=== PATIENT | female | born 1990 | race Caucasian/White ===

== ENCOUNTER 2016-08-19 22:12 | Inpatient (IN) | payer OTHER ==
--- NOTE | 2016-08-19 23:28 | HP ---
COWS - Scale Resting Pulse: 1= [place] 81-100 Sweatin= Chills/Flushing Restless Observation: 5= Unable to Sit Still Pupil Size: 1= Pupils >than Normal Bone or Joint Aches: 4=Acute Joint/Muscle Pain Runny Nose/ Eye Tearin= Nasal Congestion GI Upset > 30mins: 1= Stomach Cramp Tremor Observation: 1= Tremor [place], Not Seen Yawning Observation: 1= 1-2x During Session Anxiety or Irritability: 2=Irritable/Anxious Goose Flesh Skin: 0=Smooth Skin COWS Score: 18 CIWA Score - CIWA Score Nausea/Vomitin-Mild Nausea/No Vomiting Muscle Tremors: 3 Anxiety: 4-Mod. Anxious/Guarded Agitation: 4-Moderately Restless Paroxysmal Sweats: 3 Orientation: 0-Oriented Tacttile Disturbances: 0-None Auditory Disturbances: 0-None Visual Disturbances: 0-None Headache: 1-Very Mild CIWA-Ar Total Score: 16 Admission ROS BHS - HPI Chief Complaint: C/O HEROIN AND XANAX DEPENDENCE. SEEKING DETOX TXMENT Allergies/Adverse Reactions: Allergies Allergy/AdvReac Type Severity Reaction Status Date / Time No Known Allergies Allergy Verified 08/19/16 23:21 History of Present Illness: 26 Y.O. FEMALE WITH OPIOID DEPENDENCE AND BENZO DEPENDENCE ADMITTED FOR DETOX TXMENT. THIS IS CLIENT FIRST TIME IN [facility]. DENIES ANY SIGNIFICANT PERIOD OF CLEAN TIME Exam Limitations: No Limitations - Ebola screening Have you traveled outside of the country in the last 21 days: No (N) Have you had contact with anyone from an Ebola affected area: No Do you have a fever: No - Review of Systems Constitutional: Chills, Loss of Appetite, Malaise, Night Sweats, Changes in sleep EENT: reports: No Symptoms Reported Respiratory: reports: No Symptoms reported Cardiac: reports: No Symptoms Reported GI: reports: Poor Appetite, Abdominal cramping : reports: No Symptoms Reported Musculoskeletal: reports: Joint Pain Integumentary: reports: No Symptoms Reported Neuro: reports: No Symptoms reported Endocrine: reports: No Symptoms Reported Hematology: reports: No Symptoms Reported Psychiatric: reports: Anxious Other Systems: Reviewed and Negative Patient History - Patient Medical History Hx Anemia: No Hx Asthma: No Hx Chronic Obstructive Pulmonary Disease (COPD): No Hx Cancer: No Hx Cardiac Disorders: No Hx Congestive Heart Failure: No Hx Hypertension: No Hx Hypercholesterolemia: No Hx Pacemaker: No HX Cerebrovascular Accident: No Hx Seizures: No Hx Dementia: No Hx Diabetes: No Hx Gastrointestinal Disorders: No Hx Liver Disease: No Hx Genitourinary Disorders: No Hx Sexually Transmitted Disorders: No Hx Renal Disease (ESRD): No Hx Thyroid Disease: No Hx Human Immunodeficiency Virus (HIV): No Hx Hepatitis C: No Hx Depression: No Hx Suicide Attempt: No Hx Bipolar Disorder: No Hx Schizophrenia: No Other Medical History: DENIES - Patient Surgical History Past Surgical History: No - PPD History Previous Implant?: No Implanted On Prior [facility] Admission?: No PPD to be Administered?: Yes - Reproductive History Patient is a Female of Child Bearing Age (11 -55 yrs old): Yes Last Menstrual Period: 07/28/16 (IRREG) Patient : No - Smoking Cessation Smoking history: Current every day smoker Have you smoked in the past 12 months: Yes Aproximately how many cigarettes per day: 5 Cigars Per Day: 0 Hx Chewing Tobacco Use: No Initiated information on smoking cessation: Yes 'Breaking Loose' booklet given: 08/19/16 - Substance & Tx. History Hx Alcohol Use: No Hx Substance Use: Yes Substance Use Type: Heroin, Tranquilizers (XANAX) Hx Substance Use Treatment: No - Substances Abused HEROIN Route: Inhalation Frequency: Daily Amount used: 6 BAGS Age of first use: 24 Date of Last Use: 08/19/16 (2 BAGS) XANAX Route: Oral Frequency: 1-2 times per week Amount used: 4 MG Age of first use: 24 Date of Last Use: 08/18/16 Family Disease History - Family Disease History Family History: Denies Admission Physical Exam [facility] - Physical General Appearance: Yes: Appropriately Dressed, Mild Distress, Tremorous, Anxious HEENTM: Yes: EOMI, Normocephalic, Normal Voice, ELA, Pharynx Normal, Nasal Congestion Respiratory: Yes: Chest Non-Tender, Lungs Clear, Normal Breath Sounds, No Respiratory Distress, No Accessory Muscle Use Neck: Yes: No masses,lesions,Nodules, Supple, Trachea in good position Breast: Yes: Breast Exam Deferred Cardiology: Yes: Regular Rhythm, S1, S2, Tachycardia Abdominal: Yes: Normal Bowel Sounds, Non Tender, Flat, Soft Genitourinary: Yes: Within Normal Limits Back: Yes: Normal Inspection Musculoskeletal: Yes: full range of Motion, Gait Steady Extremities: Yes: Normal Capillary Refill, Normal Range of Motion, Non-Tender, Tremors 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, Fully Oriented, Alert, Motor Strength 5/5 Integumentary: Yes: Normal Color, Dry, Warm Lymphatic: Yes: Within Normal Limits - Diagnostic (1) Opioid dependence with withdrawal Current Visit: Yes Status: Chronic (2) Sedative, hypnotic or anxiolytic dependence with withdrawal, uncomplicated Current Visit: Yes Status: Chronic (3) Nicotine dependence Current Visit: Yes Status: Chronic Qualifiers: Nicotine product type: cigarettes Substance use status: uncomplicated Qualified Code(s): F17.210 - Nicotine dependence, cigarettes, uncomplicated Cleared for Admission S - Detox or Rehab [facility] Level of Care: Medically Managed Detox Regimen/Protocol: Methadone/Valium
[2016-08-19] MEDS ORDERED: P-EPHED 60MG/TRIPROLIDI 2.5MG TABLET PO PRN (23:42)
[2016-08-19] MEDS ORDERED: MENTHOL/PHENOL 1 EACH UD MM PRN (23:42)
[2016-08-19] MEDS ORDERED: ACETAMINOPHEN 325 MG TABLET (FP) PO PRN (23:42)
[2016-08-19] MEDS ORDERED: MAGNESIUM HYDROX 2400MG/30ML ORAL SUSPENSION 30 ML CUP PO PRN (23:42)
[2016-08-19] MEDS ORDERED: MAGNESIUM CITRATE 300 ML BOTTLE PO PRN (23:42)
[2016-08-19] MEDS ORDERED: IBUPROFEN 400 MG TABLET (FP) PO PRN (23:42)
[2016-08-19] MEDS ORDERED: LOPERAMIDE HCL 2 MG CAPSULE PO PRN (23:42)
[2016-08-19] MEDS ORDERED: MAG HYDROX/AL HYDROX/SIMETH 30 ML UNIT-DOSE CUP PO PRN (23:42)
[2016-08-19] MEDS ORDERED: guaiFENesin/D-METHORPHAN HB 10 ML UNIT-DOSE CUPS PO PRN (23:42)
[2016-08-19 23:45] VITALS: BMI 22.3
[2016-08-20] MEDS ORDERED: METHADONE HCL 10 MG TABLET (FOR DETOX USE ONLY) PO ONE ×3 (00:05→23:00)
[2016-08-20] MEDS ORDERED: diazePAM 5 MG TABLET PO PRN (00:05)
[2016-08-20] MEDS ORDERED: diazePAM 5 MG TABLET PO ONE (00:15)
[2016-08-20] MEDS: diphenhydrAMINE HCL 50 MG CAPSULE PO PRN ×2 (02:08→23:59)
[2016-08-20] MEDS: diazePAM 5 MG TABLET PO PRN ×3 (02:08→20:01)
[2016-08-20] MEDS: diazePAM 5 MG TABLET PO SCH ×3 (05:33→22:29)
[2016-08-20 10:32] LABS: MCH 27.5 pg (25.7-33.7); MCHC 33.5 g/dl (32.0-36.0); MEAN PLT VOLUME 8.8 fl (7.5-11.1); PLATELET COUNT 233 K/MM3 (134-434); RDW 13.8 % (11.6-15.6); WHITE BLOOD COUNT 7.8 K/mm3 (4.0-10.0)
[2016-08-20 10:36] LABS: ALBUMIN 3.5 g/dl (3.4-5.0); ANION GAP 9 (8-16); CALCIUM 8.9 mg/dL (8.5-10.1); CO2 30 mmol/L (21-32); GLUCOSE,RANDOM 89 mg/dL (74-106)
[2016-08-20] MEDS: PRENATAL VITAMINS W/ FOLIC ACID TABLET (FP) PO SCH (10:39)
[2016-08-20 10:41] LABS: ALK PHOS 69 U/L (45-117); BILIRUBIN,TOTAL 0.4 mg/dL (0.2-1.0); COCKROFT - GAULT 113.3645; CREATININE 0.7 mg/dL (0.55-1.02); SGOT/AST 15 U/L (15-37); SGPT/ALT 26 U/L (12-78); TOT PROT 6.4 g/dl (6.4-8.2)
[2016-08-20] MEDS: NICOTINE 14 MG/24 HOURS TOPICAL PATCH TD SCH (10:41)
--- NOTE | 2016-08-20 10:57 | CONSULT ---
[facility] Psychiatric Consult - Data Date of interview: 08/20/16 Admission source: [facility] Identifying data: This is 26 years old female with no psychiatric hospitalization history intoxicated with: Opioids, Xanax and Nicotine Substance Abuse History: - Smoking Cessation. Smoking history: Current every day smoker. Have you smoked in the past 12 months: Yes. Aproximately how many cigarettes per day: 5. Cigars Per Day: 0. Hx Chewing Tobacco Use: No. Initiated information on smoking cessation: Yes. 'Breaking Loose' booklet given : 08/19/16. - Substance & Tx. History. Hx Alcohol Use: No. Hx Substance Use: Yes. Substance Use Type: Heroin, Tranquilizers (XANAX). Hx Substance Use Treatment: No. - Substances Abused. HEROIN. Route: Inhalation. Frequency : Daily. Amount used: 6 BAGS. Age of first use: 24. Date of Last Use: (2 BAGS). XANAX. Route: Oral. Frequency: 1-2 times per week. Amount used: 4 MG. Age of first use: 24. Date of Last Use: 08/18/16 Medical History: Denies Psychiatric History: Denies Physical/Sexual Abuse/Trauma History: Denies Additional Comment: Observation. Detox Unit Carte Protocol Mental Status Exam - Mental Status Exam Alert and Oriented to: Person Cognitive Function: Fair Patient Appearance: Unkempt Mood: Sad Affect: Mood Congruent Patient Behavior: Cooperative Speech Pattern: Appropriate Voice Loudness: Normal Thought Process: Goal Oriented Thought Disorder: Being Controlled Hallucinations: Denies Suicidal Ideation: Denies Homicidal Ideation: Denies Insight/Judgement: Fair Sleep: Difficulty falling asleep Appetite: Fair Muscle strength/Tone: Normal Gait/Station: Normal Additional Comments: Observation. Detox Unit Carte Protocol Psychiatric Findings - Problem List ([place] 1, 2,3) (1) Nicotine dependence Current Visit: Yes Status: Chronic Qualifiers: Nicotine product type: cigarettes Substance use status: uncomplicated Qualified Code(s): F17.210 - Nicotine dependence, cigarettes, uncomplicated (2) Opioid dependence with withdrawal Current Visit: Yes Status: Chronic (3) Sedative, hypnotic or anxiolytic dependence with withdrawal, uncomplicated Current Visit: Yes Status: Chronic (4) Drug-induced mood disorder Current Visit: Yes Status: Suspected - Initial Treatment Plan Initial Treatment Plan: Observation. Detox Unit Carte Protocol
--- NOTE | 2016-08-20 11:25 | PN ---
[facility] CIWA - CIWA Score Nausea/Vomitin-No Nausea/No Vomiting Muscle Tremors: 4-Moderate,w/Arms Extend Anxiety: 3 Agitation: 3 Paroxysmal Sweats: 3 Orientation: 0-Oriented Tacttile Disturbances: 0-None Auditory Disturbances: 0-None Visual Disturbances: 0-None Headache: 1-Very Mild CIWA-Ar Total Score: 14 BHS COWS - Scale Resting Pulse: 0= [place] 80 or Below Sweatin=Flushed/Facial Moisture Restless Observation: 1= Difficult to Sit Still Pupil Size: 0= Normal to Room Light Bone or Joint Aches: 2= Severe Diffuse Aches Runny Nose/ Eye Tearin= Nasal Congestion GI Upset > 30mins: 1= Stomach Cramp Tremor Observation of Outstretched Hands: 2= Slight Tremor Visible Yawning Observation: 2= >3x During Session Anxiety or Irritability: 2=Irritable/Anxious Goose Flesh Skin: 0=Smooth Skin COWS Score: 13 S Progress Note (SOAP) Subjective: agitation sweats irritable tired shakes chills Objective: 08/20/16 11:24 Vital Signs Temperature 97.9 F 08/20/16 09:55 Pulse Rate 73 08/20/16 09:55 Respiratory Rate 18 08/20/16 09:55 Blood Pressure 90/60 08/20/16 09:55 O2 Sat by Pulse Oximetry (%) Laboratory Tests 08/20/16 08/20/16 07:00 07:00 WBC 7.8 RBC 4.24 Hgb 11.7 Hct 34.8 MCV 82.0 MCHC 33.5 RDW 13.8 Plt Count 233 MPV 8.8 Sodium 142 Potassium 3.7 Chloride 103 Carbon Dioxide 30 Anion Gap 9 BUN 13 Creatinine 0.7 Creat Clearance w eGFR > 60 Random Glucose 89 Calcium 8.9 Total Bilirubin 0.4 AST 15 ALT 26 Alkaline Phosphatase 69 Total Protein 6.4 Albumin 3.5 labs pending awake/alert ambulating no acute distress Assessment: 08/20/16 11:24 withdrawal sx Plan: continue detox increase fluids labs pending
--- NOTE | 2016-08-20 13:23 | EKG ---
Test Reason : Blood Pressure : / mmHG Vent. Rate : 069 BPM Atrial Rate : 069 BPM P-R Int : 160 ms QRS Dur : 094 ms QT Int : 394 ms P-R-T Axes : 018 075 034 degrees QTc Int : 422 ms NORMAL SINUS RHYTHM T WAVE ABNORMALITY, CONSIDER ANTERIOR ISCHEMIA NO PREVIOUS ECGS AVAILABLE Confirmed by RADHA YUAN, SANDY ([id number]) on 08/20/2016 1:23:44 PM Referred By: Parmjit Blackburn Confirmed By:SANDY GARCIA MD
[2016-08-20] MEDS: THIAMINE HCL 100 MG TABLET (FP) PO SCH (22:28)
[2016-08-20] MEDS: NICOTINE POLACRILEX 2 MG GUM BC PRN (23:25)
[2016-08-21] MEDS: diazePAM 5 MG TABLET PO SCH ×3 (05:34→22:17)
[2016-08-21] MEDS: NICOTINE POLACRILEX 2 MG GUM BC PRN ×2 (09:17→15:31)
[2016-08-21] MEDS: diazePAM 5 MG TABLET PO PRN ×2 (09:24→17:46)
--- NOTE | 2016-08-21 09:37 | PN ---
[facility] CIWA - CIWA Score Nausea/Vomitin-Mild Nausea/No Vomiting Muscle Tremors: 3 Anxiety: 3 Agitation: 2 Paroxysmal Sweats: 3 Orientation: 0-Oriented Tacttile Disturbances: 2-Mild Itch/Numbness/Burn Auditory Disturbances: 0-None Visual Disturbances: 0-None Headache: 0-None Present CIWA-Ar Total Score: 14 BHS COWS - Scale Resting Pulse: 1= [place] 81-100 Sweatin= Chills/Flushing Restless Observation: 1= Difficult to Sit Still Pupil Size: 1= Pupils >than Normal Bone or Joint Aches: 2= Severe Diffuse Aches Runny Nose/ Eye Tearin= Nasal Congestion GI Upset > 30mins: 1= Stomach Cramp Tremor Observation of Outstretched Hands: 1= Tremor [place], Not Seen Yawning Observation: 0= None Anxiety or Irritability: 2=Irritable/Anxious Goose Flesh Skin: 0=Smooth Skin COWS Score: 11 S Progress Note (SOAP) Subjective: sweats, shakes , aches, knees, elbows Objective: 08/21/16 09:37 Vital Signs Temperature 97.1 F L 08/21/16 06:00 Pulse Rate 61 08/21/16 06:00 Respiratory Rate 16 08/21/16 06:00 Blood Pressure 112/64 08/21/16 06:00 O2 Sat by Pulse Oximetry (%) Laboratory Tests 08/19/16 08/20/16 08/20/16 07:00 07:00 07:00 WBC 7.8 RBC 4.24 Hgb 11.7 Hct 34.8 MCV 82.0 MCHC 33.5 RDW 13.8 Plt Count 233 MPV 8.8 Sodium 142 Potassium 3.7 Chloride 103 Carbon Dioxide 30 Anion Gap 9 BUN 13 Creatinine 0.7 Creat Clearance w eGFR > 60 Random Glucose 89 Calcium 8.9 Total Bilirubin 0.4 AST 15 ALT 26 Alkaline Phosphatase 69 Total Protein 6.4 Albumin 3.5 RPR Titer Hepatitis C Antibody <0.1 08/20/16 07:00 WBC RBC Hgb Hct MCV MCHC RDW Plt Count MPV Sodium Potassium Chloride Carbon Dioxide Anion Gap BUN Creatinine Creat Clearance w eGFR Random Glucose Calcium Total Bilirubin AST ALT Alkaline Phosphatase Total Protein Albumin RPR Titer Nonreactive Hepatitis C Antibody pt aox3 in nad ambulating 05/04/17 09:37 Assessment: 08/21/16 09:37 withdrawal sx's Plan: cont. detox increase fluids motrin prn analgesic balm bid valium prn
[2016-08-21] MEDS ORDERED: METHADONE HCL 10 MG TABLET (FOR DETOX USE ONLY) PO ONE (10:00)
[2016-08-21] MEDS: PRENATAL VITAMINS W/ FOLIC ACID TABLET (FP) PO SCH (10:37)
[2016-08-21] MEDS: METHYL SALICYLATE/MENTHOL OINT 30 GM TUBE TP SCH ×2 (10:37→22:17)
[2016-08-21] MEDS: NICOTINE 14 MG/24 HOURS TOPICAL PATCH TD SCH (10:38)
[2016-08-21] MEDS: THIAMINE HCL 100 MG TABLET (FP) PO SCH (22:17)
[2016-08-21] MEDS: diphenhydrAMINE HCL 50 MG CAPSULE PO PRN (22:53)
[2016-08-22] MEDS ORDERED: METHADONE HCL 5 MG TABLET (FOR DETOX USE ONLY) PO ONE (10:00)
[2016-08-22] MEDS: NICOTINE 14 MG/24 HOURS TOPICAL PATCH TD SCH (10:52)
[2016-08-22] MEDS: diazePAM 5 MG TABLET PO SCH ×2 (10:52→22:28)
[2016-08-22] MEDS: PRENATAL VITAMINS W/ FOLIC ACID TABLET (FP) PO SCH (10:52)
[2016-08-22] MEDS: METHYL SALICYLATE/MENTHOL OINT 30 GM TUBE TP SCH ×2 (10:54→22:28)
--- NOTE | 2016-08-22 12:05 | PN ---
BHS Progress Note (SOAP) Subjective: sweats feeling better. Objective: 08/22/16 12:05 Vital Signs Temperature 97.7 F 08/22/16 10:53 Pulse Rate 82 08/22/16 10:53 Respiratory Rate 18 08/22/16 10:53 Blood Pressure 114/68 08/22/16 10:53 O2 Sat by Pulse Oximetry (%) awake/alert ambulating no acute distress Assessment: 08/22/16 12:05 withdrawal sx Plan: continue detox increase fluids d/c in am
[2016-08-22] MEDS: NICOTINE POLACRILEX 2 MG GUM BC PRN (13:17)
[2016-08-22] MEDS: diazePAM 5 MG TABLET PO PRN ×2 (14:26→18:26)
[2016-08-22] MEDS: THIAMINE HCL 100 MG TABLET (FP) PO SCH (22:28)
[2016-08-22] MEDS: diphenhydrAMINE HCL 50 MG CAPSULE PO PRN (22:30)
[2016-08-23] MEDS ORDERED: METHADONE HCL 5 MG TABLET (FOR DETOX USE ONLY) PO ONE (10:00)
[2016-08-23 10:57] VITALS: BP 107/64; PULSE 77; TEMP 97.7
--- NOTE | 2016-08-23 15:37 | DS ---
[facility] Detox Discharge Summary Admission Date: 08/19/16 Discharge Date: 08/23/16 - History Present History: Opioid Dependence Pertinent Past History: Non-significant - Physical Exam Results Vital Signs: Vital Signs Temperature 97.7 F 08/23/16 10:56 Pulse Rate 77 08/23/16 10:56 Respiratory Rate 18 08/23/16 10:56 Blood Pressure 107/64 08/23/16 10:56 O2 Sat by Pulse Oximetry (%) Pertinent Admission Physical Exam Findings: withdrawal sx Laboratory Last Values WBC 7.8 K/mm3 (4.0-10.0) 08/20/16 07:00 RBC 4.24 M/mm3 (3.60-5.2) 08/20/16 07:00 Hgb 11.7 GM/dL (10.7-15.3) 08/20/16 07:00 Hct 34.8 % (32.4-45.2) 08/20/16 07:00 MCV 82.0 fl (80-96) 08/20/16 07:00 MCHC 33.5 g/dl (32.0-36.0) 08/20/16 07:00 RDW 13.8 % (11.6-15.6) 08/20/16 07:00 Plt Count 233 K/MM3 (134-434) 08/20/16 07:00 MPV 8.8 fl (7.5-11.1) 08/20/16 07:00 Sodium 142 mmol/L (136-145) 08/20/16 07:00 Potassium 3.7 mmol/L (3.5-5.1) 08/20/16 07:00 Chloride 103 mmol/L (98-107) 08/20/16 07:00 Carbon Dioxide 30 mmol/L (21-32) 08/20/16 07:00 Anion Gap 9 (8-16) 08/20/16 07:00 BUN 13 mg/dL (7-18) 08/20/16 07:00 Creatinine 0.7 mg/dL (0.55-1.02) 08/20/16 07:00 Creat Clearance w eGFR > 60 (>60) 08/20/16 07:00 Random Glucose 89 mg/dL (74-106) 08/20/16 07:00 Calcium 8.9 mg/dL (8.5-10.1) 08/20/16 07:00 Total Bilirubin 0.4 mg/dL (0.2-1.0) 08/20/16 07:00 AST 15 U/L (15-37) 08/20/16 07:00 ALT 26 U/L (12-78) 08/20/16 07:00 Alkaline Phosphatase 69 U/L (45-117) 08/20/16 07:00 Total Protein 6.4 g/dl (6.4-8.2) 08/20/16 07:00 Albumin 3.5 g/dl (3.4-5.0) 08/20/16 07:00 RPR Titer Nonreactive (NONREACTIVE) 08/20/16 07:00 Hepatitis C Antibody <0.1 s/co ratio (0.0-0.9) 08/19/16 07:00 labs noted - Medication Discharge Medications: Ambulatory Orders NK [No Known Home Medication] 08/19/16 - Diagnosis (1) Nicotine dependence Status: Acute Qualifiers: Nicotine product type: cigarettes Substance use status: uncomplicated Qualified Code(s): F17.210 - Nicotine dependence, cigarettes, uncomplicated (2) Opioid dependence with withdrawal Status: Acute (3) Sedative, hypnotic or anxiolytic dependence with withdrawal, uncomplicated Status: Acute (4) Drug-induced mood disorder Status: Acute - AMA Did Patient Leave Against Medical Advice: Yes
[2016-08-24] MEDS ORDERED: METHADONE HCL 10 MG TABLET (FOR DETOX USE ONLY) PO ONE (10:00)
[2016-08-24] MEDS ORDERED: diazePAM 5 MG TABLET PO SCH (10:00)
[2016-08-25] MEDS ORDERED: METHADONE HCL 5 MG TABLET (FOR DETOX USE ONLY) PO ONE (06:00)
== END 2016-08-23 09:20 | disposition left against medical advice (07) | DRG 770 ==
LOC: YASAS 22:12 → Y6N 23:44
PROVIDERS: ADMIT Internal Medicine Addiction Medicine; ATTEND Internal Medicine Addiction Medicine
PROC: HZ2ZZZZ Detoxification Services for Substance Abuse Treatment (ICD-10-PCS; principal; 2016-08-23)
DX: F11.23 Opioid dependence with withdrawal (principal); F13.230 Sedative, hypnotic or anxiolytic dependence with withdrawal, uncomplicated; F17.210 Nicotine dependence, cigarettes, uncomplicated; F19.24 Other psychoactive substance dependence with psychoactive substance-induced mood disorder
CPT/HCPCS: 36415; 80053; 81003; 85027; 86593; 93005; 93010

== ENCOUNTER 2016-09-25 09:29 | Inpatient (IN) | payer OTHER ==
[2016-09-25 09:59] VITALS: BMI 21.8
--- NOTE | 2016-09-25 13:42 | HP ---
Admission [facility] Chief Complaint: REHAB TX . PT COMPLETED DETOX HERE 08/23/16 Allergies/Adverse Reactions: Allergies Allergy/AdvReac Type Severity Reaction Status Date / Time No Known Allergies Allergy Verified 08/19/16 23:21 History of Present Illness: 26 Y/O H/F WITH A HX OF HEROIN,XANAX AND ALCOHOL DEPENDENCE SEEKING DETOX [place] Exam Limitations: No Limitations - Ebola screening Have you traveled outside of the country in the last 21 days: No Have you had contact with anyone from an Ebola affected area: No Have you been sick,other than usual withdrawal symptoms: No - Review of Systems Constitutional: Chills, Loss of Appetite, Night Sweats, Unintentional Wgt. Loss EENT: reports: Tearing, Nose Congestion, Dental Problems (MISSING TEETH/CAVITIES ) Respiratory: reports: No Symptoms reported Cardiac: reports: Lightheadedness GI: reports: Constipated, Diarrhea, Nausea, Abdominal cramping : reports: No Symptoms Reported Musculoskeletal: reports: Back Pain, Joint Pain, Muscle Pain Integumentary: reports: No Symptoms Reported Neuro: reports: Headache, Tremors, Dizziness Endocrine: reports: No Symptoms Reported Hematology: reports: No Symptoms Reported Psychiatric: reports: Orientated x3, Anxious Other Systems: Reviewed and Negative Patient History - Patient Medical History Hx Anemia: No Hx Asthma: No Hx Chronic Obstructive Pulmonary Disease (COPD): No Hx Cancer: No Hx Cardiac Disorders: No Hx Congestive Heart Failure: No Hx Hypertension: No Hx Hypercholesterolemia: No Hx Pacemaker: No HX Cerebrovascular Accident: No Hx Seizures: No Hx Dementia: No Hx Diabetes: No Hx Gastrointestinal Disorders: No Hx Liver Disease: No Hx Genitourinary Disorders: No Hx Sexually Transmitted Disorders: No (DENIES) Hx Renal Disease (ESRD): No Hx Thyroid Disease: No Hx Human Immunodeficiency Virus (HIV): No (DENIES) Hx Hepatitis C: No Hx Depression: Yes (HX MOOD DISORDER) Hx Suicide Attempt: No (DENIES) Hx Bipolar Disorder: No Hx Schizophrenia: No - Patient Surgical History Past Surgical History: No Hx Neurologic Surgery: No Hx Cataract Extraction: No Hx Cardiac Surgery: No Hx Lung Surgery: No Hx Breast Surgery: No Hx Breast Biopsy: No Hx Abdominal Surgery: No Hx Appendectomy: No Hx Cholecystectomy: No Hx Genitourinary Surgery: No Hx Section: No Hx Orthopedic Surgery: No Anesthesia Reaction: No - PPD History Previous Implant?: Yes Documented Results: Negative w/proof Implanted On Prior R Admission?: Yes Date: 08/22/16 PPD to be Administered?: No - Reproductive History Patient is a Female of Child Bearing Age (11 -55 yrs old): Yes Last Menstrual Period: 09/06/16 Patient : No - Smoking Cessation Smoking history: Current every day smoker Have you smoked in the past 12 months: Yes Aproximately how many cigarettes per day: 5 Cigars Per Day: 0 Hx Chewing Tobacco Use: No Initiated information on smoking cessation: Yes 'Breaking Loose' booklet given: 09/25/16 - Substance & Tx. History Hx Alcohol Use: Yes (OCASSIONAL LIQUOR(2-3X/WEEK)) Hx Substance Use: Yes (HEROIN/XANAX) Substance Use Type: Alcohol, Heroin, Tranquilizers Hx Substance Use Treatment: Yes (LAST DETOX AT [facility] ON 08/23/16) - Substances Abused Heroin Route: Inhalation Frequency: Daily Amount used: 10 BAGS Age of first use: 24 Date of Last Use: 09/24/16 Alprazolam (Xanax) Route: Oral Frequency: 3-6 times per week (3-4 X/WEEK) Amount used: 3 STIX Age of first use: 23 Date of Last Use: 09/23/16 PRIYA Route: Oral Frequency: 3-6 times per week Amount used: 2-3 8oz Age of first use: 16 Date of Last Use: 09/21/16 Family Disease History - Family Disease History Family Disease History: Other: Mother (HTN) Admission Physical Exam [facility] - Vital Signs Vital Signs: Vital Signs - 24 hr 09/25/16 09:55 Temperature 96.7 F L Pulse Rate 86 Respiratory 18 Rate Blood Pressure 125/81 - Physical General Appearance: Yes: No Apparent Distress, Anxious HEENTM: Yes: EOMI, Normocephalic, ELA, Pharynx Normal Respiratory: Yes: Chest Non-Tender, Lungs Clear, Normal Breath Sounds, No Respiratory Distress Neck: Yes: Supple, Trachea in good position Breast: Yes: Breast Exam Deferred Cardiology: Yes: Regular Rhythm, Regular Rate, S1, S2 Abdominal: Yes: Normal Bowel Sounds, Non Tender, Flat, Soft Genitourinary: Yes: Other (N/C) Back: Yes: Within Normal Limits Musculoskeletal: Yes: full range of Motion, Gait Steady Extremities: Yes: Normal Range of Motion, Non-Tender 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, Fully Oriented, Alert Integumentary: Yes: Dry, Warm Lymphatic: Yes: Within Normal Limits - Diagnostic (1) Nicotine dependence Current Visit: Yes Status: Acute Qualifiers: Nicotine product type: cigarettes Substance use status: in withdrawal Qualified Code(s): F17.213 - Nicotine dependence, cigarettes, with withdrawal (2) Opioid dependence with withdrawal Current Visit: Yes Status: Chronic (3) Sedative, hypnotic or anxiolytic dependence with withdrawal, uncomplicated Current Visit: Yes Status: Chronic (4) Alcohol abuse Current Visit: Yes Status: Chronic Cleared for Admission [facility] - Detox or Rehab Claeared for Rehab Admission: Yes [facility] Breath Alcohol Content Breath Alcohol Content: 0 Urine Pregancy Test - Result Urine Test Results: Negative- NO Line Present Urine Drug Screen - Results Drug Screen Negative: Yes
[2016-09-25] MEDS ORDERED: MAG HYDROX/AL HYDROX/SIMETH 30 ML UNIT-DOSE CUP PO PRN (13:57)
[2016-09-25] MEDS ORDERED: guaiFENesin/D-METHORPHAN HB 10 ML UNIT-DOSE CUPS PO PRN (13:57)
[2016-09-25] MEDS ORDERED: MAGNESIUM CITRATE 300 ML BOTTLE PO PRN (13:57)
[2016-09-25] MEDS ORDERED: IBUPROFEN 400 MG TABLET (FP) PO PRN (13:57)
[2016-09-25] MEDS ORDERED: MENTHOL/PHENOL 1 EACH UD MM PRN (13:57)
[2016-09-25] MEDS ORDERED: MAGNESIUM HYDROX 2400MG/30ML ORAL SUSPENSION 30 ML CUP PO PRN (13:57)
[2016-09-25] MEDS ORDERED: ACETAMINOPHEN 325 MG TABLET (FP) PO PRN (13:57)
[2016-09-25] MEDS ORDERED: NICOTINE POLACRILEX 2 MG GUM BUC PRN (13:57)
[2016-09-25] MEDS ORDERED: diphenhydrAMINE HCL 50 MG CAPSULE PO PRN (13:57)
[2016-09-25] MEDS ORDERED: P-EPHED 60MG/TRIPROLIDI 2.5MG TABLET PO PRN (13:57)
[2016-09-25] MEDS ORDERED: LOPERAMIDE HCL 2 MG CAPSULE PO PRN (13:57)
[2016-09-25] MEDS: NICOTINE 14 MG/24 HOURS TOPICAL PATCH TD SCH (15:51)
[2016-09-25] MEDS: hydrOXYzine PAMOATE 25 MG CAPSULE (FP) PO PRN ×2 (15:51→19:20)
[2016-09-25 16:12] LABS: MCHC 32.5 g/dl (32.0-36.0); MEAN CELL VOLUME 83.3 fl (80-96); MEAN PLT VOLUME 8.6 fl (7.5-11.1); PLATELET COUNT 332 K/MM3 (134-434); RDW 14.2 % (11.6-15.6); WHITE BLOOD COUNT 7.3 K/mm3 (4.0-10.0)
[2016-09-25 16:16] LABS: ALK PHOS 90 U/L (45-117); ANION GAP 8 (8-16); BILIRUBIN,TOTAL 0.3 mg/dL (0.2-1.0); CALCIUM 9.6 mg/dL (8.5-10.1); CO2 34 mmol/L (21-32); COCKROFT - GAULT 110.7465; CREATININE 0.7 mg/dL (0.55-1.02); GLUCOSE,RANDOM 70 mg/dL (74-106); SGOT/AST 27 U/L (15-37); SGPT/ALT 40 U/L (12-78); TOT PROT 7.6 g/dl (6.4-8.2)
[2016-09-25] MEDS: THIAMINE HCL 100 MG TABLET (FP) PO SCH (21:21)
[2016-09-25 23:41] LABS: URINE APPEARANCE CLOUDY; URINE BILIRUBIN NEGATIVE (NEGATIVE); URINE BLOOD NEGATIVE (NEGATIVE); URINE COLOR DKYELLOW; URINE GLUCOSE (UA) NEGATIVE (NEGATIVE); URINE KETONE NEGATIVE (NEGATIVE); URINE NITRITE NEGATIVE (NEGATIVE); URINE PROTEIN NEGATIVE (NEGATIVE); URINE UROBILINOGEN NEGATIVE E.U./dl (0.2-1.0)
[2016-09-26 00:10] LABS: URINE LEUK ESTERASE 2+ (NEGATIVE)
[2016-09-26 00:17] LABS: URINE BACTERIA RARE /hpf (NONE SEEN); URINE MUCUS RARE; URINE RBC 6 /hpf (0-3); URINE WBC 13 /hpf (3-5); YEAST RARE
[2016-09-26] MEDS: hydrOXYzine PAMOATE 25 MG CAPSULE (FP) PO PRN ×3 (06:19→17:44)
[2016-09-26] MEDS: PRENATAL VITAMINS W/ FOLIC ACID TABLET (FP) PO SCH (09:47)
[2016-09-26] MEDS: NICOTINE 14 MG/24 HOURS TOPICAL PATCH TD SCH (09:48)
--- NOTE | 2016-09-26 10:06 | EKG ---
Test Reason : Blood Pressure : / mmHG Vent. Rate : 091 BPM Atrial Rate : 091 BPM P-R Int : 160 ms QRS Dur : 086 ms QT Int : 360 ms P-R-T Axes : 057 071 049 degrees QTc Int : 442 ms NORMAL SINUS RHYTHM NONSPECIFIC T WAVE ABNORMALITY WHEN COMPARED WITH ECG OF 20-AUG-2016 00:00, NO SIGNIFICANT CHANGE WAS FOUND Confirmed by RACHELE CHAPPELL MD ([id number]) on 09/26/2016 10:06:03 AM Referred By: Salvador Roman Confirmed By:RACHELE CHAPPELL MD
[2016-09-26] MEDS: cloNIDine HCL 0.1 MG TABLET PO SCH ×2 (11:53→21:34)
--- NOTE | 2016-09-26 13:55 | HP ---
Psychiatrist Admission - Data Date of interview: 09/26/16 Admission source: [facility] Identifying data: This is the first admission to [address] [place] [address] for this 26 yo H single mother of 2 (5 yo and 2 yo).Children reside with the patient 's mother.Patient resides with her kids and mother, supported by PA. Medical History: unremarkable Psychiatric History: denies Physical/Sexual Abuse/Trauma History: denies Vital Signs: Vital Signs - 24 hr 09/25/16 09/26/16 09/26/16 15:50 00:30 03:30 Temperature 98.6 F Pulse Rate 92 H Respiratory 18 16 16 Rate Blood Pressure 100/71 09/26/16 09/26/16 06:54 11:50 Temperature 98.1 F Pulse Rate 76 102 H Respiratory 16 Rate Blood Pressure 116/77 126/82 Allergies/Adverse Reactions: Allergies Allergy/AdvReac Type Severity Reaction Status Date / Time No Known Allergies Allergy Verified 08/19/16 23:21 Date of last physical exam: 09/26/16 Concur with the findings of this exam: Yes - Substance Abuse/Tx History Hx Alcohol Use: Yes (drinking since 16 yo,Michelle) Hx Substance Use: Yes (sniffing 2 years ago,10 bags daily,Xanax 1 yo) Substance Use Type: Heroin Hx Substance Use Treatment: Yes (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 ) - Admission Criteria Previous failed treatment: Yes Poor recovery environment: Yes Comorbidities: Yes Lacks judgement: Yes Mental Status Exam - Mental Status Exam Alert and Oriented to: Time, Place, Person Cognitive Function: Grossly Intact Patient Appearance: Unkempt Mood: Sad, Anxious Affect: Mood Congruent, Labile Patient Behavior: Cooperative Speech Pattern: Clear Voice Loudness: Normal Thought Process: Goal Oriented Thought Disorder: Not Present Hallucinations: Denies Suicidal Ideation: Denies Homicidal Ideation: Denies Insight/Judgement: Fair Sleep: Fair Appetite: Fair Muscle strength/Tone: Normal Gait/Station: Normal Psychiatric Findings - Problem List ([place] 1, 2,3) (1) Alcohol dependence with uncomplicated withdrawal Status: Chronic (2) Nicotine dependence Status: Chronic Qualifiers: Nicotine product type: cigarettes Substance use status: in withdrawal Qualified Code(s): F17.213 - Nicotine dependence, cigarettes, with withdrawal (3) Opioid dependence with withdrawal Status: Chronic (4) Sedative, hypnotic or anxiolytic dependence with withdrawal, uncomplicated Status: Chronic (5) Drug-induced mood disorder Status: Chronic - Initial Treatment Plan Initial Treatment Plan: Will monitor progress.
[2016-09-26] MEDS: THIAMINE HCL 100 MG TABLET (FP) PO SCH (21:34)
[2016-09-27 07:43] VITALS: TEMP 98
[2016-09-27] MEDS: hydrOXYzine PAMOATE 25 MG CAPSULE (FP) PO PRN ×2 (09:29→18:00)
[2016-09-27] MEDS: PRENATAL VITAMINS W/ FOLIC ACID TABLET (FP) PO SCH (09:29)
[2016-09-27] MEDS: cloNIDine HCL 0.1 MG TABLET PO SCH (09:29)
[2016-09-27] MEDS: NICOTINE 14 MG/24 HOURS TOPICAL PATCH TD SCH (09:30)
[2016-09-27 10:07] VITALS: BP 111/75; PULSE 90
== END 2016-09-27 20:04 | disposition left against medical advice (07) | DRG 770 ==
LOC: YASAS 09:29 → Y3E 14:38
PROVIDERS: ADMIT Psychiatry & Neurology Psychiatry; ATTEND Psychiatry & Neurology Psychiatry
PROC: HZ42ZZZ Group Counseling for Substance Abuse Treatment, Cognitive-Behavioral (ICD-10-PCS; principal; 2016-09-25)
DX: F11.20 Opioid dependence, uncomplicated (principal); F13.20 Sedative, hypnotic or anxiolytic dependence, uncomplicated; F10.20 Alcohol dependence, uncomplicated; F17.213 Nicotine dependence, cigarettes, with withdrawal; F19.24 Other psychoactive substance dependence with psychoactive substance-induced mood disorder
CPT/HCPCS: 36415; 80053; 81003; 81015; 85027; 86593; 93005; 93010; J0735

== ENCOUNTER 2018-08-03 18:49 | Inpatient (IN) | payer OTHER ==
[2018-08-03 22:43] VITALS: BMI 27.8
--- NOTE | 2018-08-03 23:58 | HP ---
COWS - Scale Resting Pulse: 1= [place] 81-100 Sweatin=Flushed/Facial Moisture Restless Observation: 1= Difficult to Sit Still Pupil Size: 2= Moderately Dilated (Pupils =4 mm) Bone or Joint Aches: 0= None Runny Nose/ Eye Tearin= Nasal Congestion GI Upset > 30mins: 0= None Tremor Observation: 2= Slight Tremor Visible Yawning Observation: 0= None Anxiety or Irritability: 2=Irritable/Anxious Goose Flesh Skin: 0=Smooth Skin COWS Score: 11 CIWA Score Nausea/Vomitin-No Nausea/No Vomiting Muscle Tremors: 3 Anxiety: 3 Agitation: 1-Slight > Activity Paroxysmal Sweats: 3 (Increased facial moisture) Orientation: 2-Disoriented Date<2 days Tacttile Disturbances: 0-None Auditory Disturbances: 0-None Visual Disturbances: 0-None Headache: 0-None Present CIWA-Ar Total Score: 12 - Admission Criteria [facility] Guidelines: Admission for Medically Managed Detox: Requires at least one of the followin. CIWA greater than 12 2. Seizures within the past 24 hours 3. Delirium tremens within the past 24 hours 4. Hallucinations within the past 24 hours 5. Acute intervention needed for co occurring medical disorder 6. Acute intervention needed for co occurring psychiatric disorder 7. Severe withdrawal that cannot be handled at a lower level of care (continued vomiting, continued diarrhea, abnormal vital signs) requiring intravenous medication and/or fluids 8. Patient presents the following: CIWA greater than 12 (Co-occuring opioid use disorder.) Admission Criteria Met: Admission criteria met Admission ROS [facility] - [facility] Chief Complaint: Here c/o Xanax and opioid withdrawals Allergies/Adverse Reactions: Allergies Allergy/AdvReac Type Severity Reaction Status Date / Time No Known Allergies Allergy Verified 08/03/18 23:49 History of Present Illness: Here for detox. Mandated into treatment. Oxycontine/codone use since age 27. Xanax use since age 27. Suboxone use since age 26. Marijuana use since age 18. Nicotine use since age 17. Alcohol use once per week 2-3 cups of liquor or wine. Denies hx seizures, blackouts, or overdoses. Longest length of sobriety 3 weeks - while taking Suboxone. Patient declines a Suboxone detox. Prefers a methadone detox. Explained that any transition to a Suboxone program will require a wait of 2-3 days post last dose of methadone. Patient verbalizes an understanding. PMHx: Denies significant PMH MHHx: Insomnia. Depression. Denies thoughts of harming self or others. States recently prescribed Setraline for depression and ambien for sleep. Patient Name: Jami López Date: 1990 Address: [address] [place] [address] Sex: Female Rx Written Rx Dispensed Drug Quantity Days Supply Prescriber Name 07/13/2018 07/13/2018 zolpidem tartrate 5 mg tablet 7 7 Sax, Jn Lawson NP Exam Limitations: No Limitations - Ebola screening Have you traveled outside of the country in the last 21 days: No (N) Have you had contact with anyone from an Ebola affected area: No Do you have a fever: No - Review of Systems Constitutional: Chills, Diaphoresis, Fever, Changes in sleep (Difficulty falling and staying asleep -) EENT: reports: Nose Congestion, Dental Problems Respiratory: reports: No Symptoms reported Cardiac: reports: No Symptoms Reported GI: reports: No Symptoms Reported : reports: No Symptoms Reported Musculoskeletal: reports: Back Pain (Chronic achy LBP - increases w/ lifting heavy things and occ shoots down (L) leg. No pain at this time.) Integumentary: reports: No Symptoms Reported Neuro: reports: Tremors Endocrine: reports: No Symptoms Reported Hematology: reports: No Symptoms Reported Psychiatric: reports: Agitated, Anxious, Depressed (Depression. Denies thoughts of harming self or others.), Disorientated (Off by 2 days) Patient History - Patient Medical History Hx Anemia: No Hx Asthma: No Hx Chronic Obstructive Pulmonary Disease (COPD): No Hx Cancer: No Hx Cardiac Disorders: No Hx Congestive Heart Failure: No Hx Hypertension: No Hx Hypercholesterolemia: No Hx Pacemaker: No HX Cerebrovascular Accident: No Hx Seizures: No Hx Dementia: No Hx Diabetes: No Hx Gastrointestinal Disorders: No Hx Liver Disease: No Hx Genitourinary Disorders: No Hx Sexually Transmitted Disorders: No Hx Renal Disease (ESRD): No Hx Thyroid Disease: No Hx Human Immunodeficiency Virus (HIV): No (DENIES) Hx Hepatitis C: No Hx Depression: No Hx Suicide Attempt: No (DENIES) Hx Bipolar Disorder: No Hx Schizophrenia: No - Patient Surgical History Past Surgical History: No Hx Neurologic Surgery: No Hx Cataract Extraction: No Hx Cardiac Surgery: No Hx Lung Surgery: No Hx Breast Surgery: No Hx Breast Biopsy: No Hx Abdominal Surgery: No Hx Appendectomy: No Hx Cholecystectomy: No Hx Genitourinary Surgery: No Hx Section: No Hx Orthopedic Surgery: No Anesthesia Reaction: No - PPD History Previous Implant?: Yes Documented Results: Negative w/proof Implanted On Prior [facility] Admission?: Yes Date: 08/22/16 Results: 0MM PPD to be Administered?: Yes - Reproductive History Last Menstrual Period: 09/06/16 - Smoking Cessation Smoking history: Current every day smoker Have you smoked in the past 12 months: Yes Aproximately how many cigarettes per day: 10 Cigars Per Day: 0 Hx Chewing Tobacco Use: No Initiated information on smoking cessation: Yes 'Breaking Loose' booklet given: 08/03/18 - Substance & Tx. History Hx Alcohol Use: No Hx Substance Use: Yes Substance Use Type: Cocaine, Heroin, Marijuana, Opiates, Tranquilizers (Xanax) Hx Substance Use Treatment: Yes (detox) - Substances abused Oxycontin Substance route: Oral Frequency: Daily Amount used: 60MG-90MG Age of first use: 27 Date of last use: 08/02/18 Alprazolam (Xanax) Substance route: Oral Frequency: Daily Amount used: 6MG Age of first use: 27 Date of last use: 08/02/18 Marijuana/Hashish Substance route: Smoking Frequency: 1-2 times per week Amount used: 1 blunt Age of first use: 18 Date of last use: 08/01/18 Buprenorphine Substance route: Oral Frequency: 1-3 times last 30 days Amount used: 16 Age of first use: 26 Date of last use: 08/03/18 Family Disease History - Family Disease History Family Disease History: Other: Mother (HTN) Admission Physical Exam BHS - Vital Signs Vital Signs: Vital Signs - 24 hr 08/03/18 08/03/18 22:40 23:38 Temperature 96.9 F L Pulse Rate 91 H 91 H Respiratory 20 20 Rate Blood Pressure 108/63 108/63 - Physical General Appearance: Yes: Nourished, Mild Distress, Tremorous, Sweating ( Increased facial moisture), Anxious HEENTM: Yes: EOMI, Hearing grossly Normal, Normocephalic, Normal Voice, ELA ( Pupils =4 mm), Pharynx Normal, Nasal Congestion Respiratory: Yes: Lungs Clear, Normal Breath Sounds, No Respiratory Distress Neck: Yes: No masses,lesions,Nodules, Supple Breast: Yes: Breast Exam Deferred Cardiology: Yes: Regular Rhythm, Regular Rate, S1, S2 Abdominal: Yes: Flat, Soft, Increased Bowel Sounds, Tenderness (Mid quad tenderness upon palpation. No guarding. 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, Alert, Motor Strength 5/5, Disoriented (Missed days by 3) Integumentary: Yes: Normal Color, Warm Lymphatic: Yes: Within Normal Limits - Diagnostic (1) Cannabis dependence, uncomplicated Current Visit: Yes Status: Chronic (2) Nicotine dependence Current Visit: Yes Status: Chronic Qualifiers: Nicotine product type: cigarettes Substance use status: in withdrawal Qualified Code(s): F17.213 - Nicotine dependence, cigarettes, with withdrawal (3) Opioid dependence with withdrawal Current Visit: Yes Status: Acute (4) Sedative, hypnotic or anxiolytic dependence with withdrawal, uncomplicated Current Visit: Yes Status: Acute Cleared for Admission [facility] - Detox or Rehab [facility] Level of Care: Medically Managed Detox Regimen/Protocol: Methadone/Valium Breathalyzer - Breathalyzer Breathalyzer: 0 Urine Drug Screen - Test Device Lot number: [id number] Expiration date: 03/19/20 - Control Is test valid?: Yes - Results Drug screen NEGATIVE: No Urine drug screen results: THC-Marijuana, OXY-Oxycodone, BZO-Benzodiazepines, BUP-Suboxone Inpatient Rehab Admission - Rehab Decision to Admit Inpatient rehab admission?: No
[2018-08-04] MEDS ORDERED: ACETAMINOPHEN 325 MG TABLET (FP) PO PRN ×2 (00:57)
[2018-08-04] MEDS ORDERED: MENTHOL/PHENOL 1 EACH UD MM PRN (00:57)
[2018-08-04] MEDS ORDERED: MAGNESIUM HYDROX 2400MG/30ML ORAL SUSPENSION 30 ML CUP PO PRN (00:57)
[2018-08-04] MEDS ORDERED: IBUPROFEN 400 MG TABLET (FP) PO PRN ×2 (00:57→01:07)
[2018-08-04] MEDS ORDERED: METHOCARBAMOL 500 MG TABLET PO PRN (00:57)
[2018-08-04] MEDS ORDERED: cloNIDine HCL 0.1 MG TABLET PO PRN (00:57)
[2018-08-04] MEDS ORDERED: BISMUTH SUBSALICYLATE 524 MG/30 ML UD PO PRN (00:57)
[2018-08-04] MEDS ORDERED: MAGNESIUM CITRATE 300 ML BOTTLE PO PRN (00:57)
[2018-08-04] MEDS ORDERED: MAG HYDROX/AL HYDROX/SIMETH 30 ML UNIT-DOSE CUP PO PRN (00:57)
[2018-08-04] MEDS ORDERED: diazePAM 5 MG TABLET PO ONE (01:05)
[2018-08-04] MEDS ORDERED: METHADONE HCL 10 MG TABLET (FOR DETOX USE ONLY) PO ONE ×2 (01:10→10:00)
[2018-08-04] MEDS: diazePAM 5 MG TABLET PO SCH ×3 (06:34→22:19)
[2018-08-04] MEDS: ONDANSETRON *ODT* 4 MG TABLET SL PRN (06:35)
[2018-08-04] MEDS: PRENATAL VITAMINS W/ FOLIC ACID TABLET (FP) PO SCH (10:06)
[2018-08-04] MEDS: NICOTINE 14 MG/24 HOURS TOPICAL PATCH TD SCH (10:06)
[2018-08-04] MEDS ORDERED: BACLOFEN 10 MG TABLET (FP) PO ONE (11:57)
--- NOTE | 2018-08-04 12:01 | PN ---
[facility] CIWA - CIWA Score Nausea/Vomitin-No Nausea/No Vomiting Muscle Tremors: 4-Moderate,w/Arms Extend Anxiety: 3 Agitation: 3 Paroxysmal Sweats: 3 Orientation: 0-Oriented Tacttile Disturbances: 0-None Auditory Disturbances: 0-None Visual Disturbances: 0-None Headache: 0-None Present CIWA-Ar Total Score: 13 [facility] COWS - Scale Resting Pulse: 2= [place] 101-120 Sweatin=Flushed/Facial Moisture Restless Observation: 1= Difficult to Sit Still Pupil Size: 0= Normal to Room Light Bone or Joint Aches: 2= Severe Diffuse Aches Runny Nose/ Eye Tearin= Nasal Congestion GI Upset > 30mins: 2= Nausea/Diarrhea Tremor Observation of Outstretched Hands: 2= Slight Tremor Visible Yawning Observation: 1= 1-2x During Session Anxiety or Irritability: 2=Irritable/Anxious Goose Flesh Skin: 0=Smooth Skin COWS Score: 15 [facility] Progress Note (SOAP) Subjective: restless sweats shakes nausea interrupted sleep body aches chills jumpy muscle cramps Objective: 08/04/18 12:02 Vital Signs Temperature 101.7 F H 08/04/18 09:38 Pulse Rate 118 H 08/04/18 09:38 Respiratory Rate 20 08/04/18 09:38 Blood Pressure 105/66 08/04/18 09:38 O2 Sat by Pulse Oximetry (%) labs pending aaox3 ambulating no acute distress Assessment: 08/04/18 12:02 withdrawal sx Plan: continue detox increase fluids labs pending baclofen 10mg tid clonidine 0.1mg bid naproxyn 500mg bid
--- NOTE | 2018-08-04 12:25 | EKG ---
Test Reason : Blood Pressure : / mmHG Vent. Rate : 077 BPM Atrial Rate : 077 BPM P-R Int : 180 ms QRS Dur : 078 ms QT Int : 396 ms P-R-T Axes : 059 057 019 degrees QTc Int : 448 ms NORMAL SINUS RHYTHM NORMAL ECG WHEN COMPARED WITH ECG OF 25-SEP-2016 18:05, NO SIGNIFICANT CHANGE WAS FOUND Confirmed by SANDY GARCIA MD ([id number]) on 08/04/2018 12:24:35 PM Referred By: Confirmed By:SANDY GARCIA MD
[2018-08-04] MEDS: NAPROXEN 500 MG TABLET (FP) PO SCH ×2 (12:36→22:19)
[2018-08-04] MEDS: cloNIDine HCL 0.1 MG TABLET PO SCH ×2 (12:37→22:19)
[2018-08-04 13:02] LABS: ALBUMIN 3.8 g/dl (3.4-5.0); ALK PHOS 76 U/L (45-117); ANION GAP 4 MMOL/L (8-16); BILIRUBIN,TOTAL 0.7 mg/dL (0.2-1); BLOOD UREA NITROGEN 17 mg/dL (7-18); CALCIUM 9.1 mg/dL (8.5-10.1); CHLORIDE 104 mmol/L (98-107); CO2 28 mmol/L (21-32); CREATININE 0.8 mg/dL (0.55-1.3); GLUCOSE,RANDOM 99 mg/dL (74-106); POTASSIUM 4.1 mmol/L (3.5-5.1); SGOT/AST 64 U/L (15-37); SGPT/ALT 95 U/L (13-61); SODIUM 137 mmol/L (136-145)
[2018-08-04 13:32] LABS: HEMOGLOBIN 13.8 GM/dL (10.7-15.3); MCH 29.4 pg (25.7-33.7); MCHC 33.6 g/dl (32.0-36.0); MEAN CELL VOLUME 87.5 fl (80-96); MEAN PLT VOLUME 8.9 fl (7.5-11.1); PLATELET COUNT 233 K/MM3 (134-434); RBC 4.69 M/mm3 (3.60-5.2); RDW 13.8 % (11.6-15.6); WHITE BLOOD COUNT 8.3 K/mm3 (4.0-10.0)
[2018-08-04] MEDS: NICOTINE POLACRILEX 2 MG GUM BUC PRN (15:52)
[2018-08-04] MEDS: diazePAM 5 MG TABLET PO PRN (18:58)
[2018-08-04] MEDS: THIAMINE HCL 100 MG TABLET (FP) PO SCH (22:19)
[2018-08-04] MEDS: BACLOFEN 10 MG TABLET (FP) PO SCH (22:19)
[2018-08-04] MEDS: MELATONIN 5 MG TABLETS PO PRN (22:21)
[2018-08-05 01:10] LABS: URINE APPEARANCE Clear; URINE BILIRUBIN Negative (NEGATIVE); URINE COLOR Yellow; URINE GLUCOSE (UA) Negative (NEGATIVE); URINE KETONE Negative (NEGATIVE); URINE LEUK ESTERASE Trace (NEGATIVE); URINE NITRITE Negative (NEGATIVE); URINE PROTEIN Negative (NEGATIVE); URINE UROBILINOGEN 0.2 mg/dL (0.2-1.0)
[2018-08-05 03:21] LABS: EPI CELLS MANY /HPF (0-5/HPF)
[2018-08-05 03:22] LABS: URINE BACTERIA RARE /hpf (NEGATIVE)
[2018-08-05] MEDS: diazePAM 5 MG TABLET PO SCH ×2 (06:32→17:42)
[2018-08-05] MEDS: BACLOFEN 10 MG TABLET (FP) PO SCH ×3 (06:32→22:26)
[2018-08-05] MEDS: NICOTINE POLACRILEX 2 MG GUM BUC PRN ×2 (09:06→18:42)
[2018-08-05] MEDS ORDERED: METHADONE HCL 5 MG TABLET (FOR DETOX USE ONLY) PO ONE (10:00)
[2018-08-05] MEDS: cloNIDine HCL 0.1 MG TABLET PO SCH ×2 (10:30→22:25)
[2018-08-05] MEDS: NAPROXEN 500 MG TABLET (FP) PO SCH ×2 (10:30→22:26)
[2018-08-05] MEDS: PRENATAL VITAMINS W/ FOLIC ACID TABLET (FP) PO SCH (10:31)
[2018-08-05] MEDS: NICOTINE 14 MG/24 HOURS TOPICAL PATCH TD SCH (10:31)
--- NOTE | 2018-08-05 11:26 | CONSULT ---
[facility] Psychiatric Consult - Data Date of interview: 08/05/18 Admission source: Probation Identifying data: Ms óLpez is a 28 years old single female, mother of 2 children, unemployed with no source of income, living with a roomate seeking detox treatment for opioid, benzodiazepine and cannabis Substance Abuse History: Reports history of oxycontin, suboxone, xanax and marijuana use. Refer to addiction counselor's summary for further information Medical History: Unremarkable. Smokes 10 cigarettes daily Psychiatric History: Denies history of previous psychiatric treatment Physical/Sexual Abuse/Trauma History: Denies history of emotional, physical or sexual abuse as well as DV relationship. No service Additional Comment: Reports history of 2 previous arrests including one felony conviction. Reportds being on probation currently Mental Status Exam - Mental Status Exam Alert and Oriented to: Time, Place, Person Cognitive Function: Fair Patient Appearance: Well Groomed Mood: Depressed Affect: Appropriate Patient Behavior: Cooperative Speech Pattern: Clear Voice Loudness: Normal Thought Process: Intact, Goal Oriented Hallucinations: Denies Suicidal Ideation: Denies Homicidal Ideation: Denies Insight/Judgement: Poor Sleep: Poorly Appetite: Fair Muscle strength/Tone: Normal Gait/Station: Normal Psychiatric Findings - Problem List ([place] 1, 2,3) (1) Substance induced mood disorder Current Visit: Yes Status: Acute (2) Substance-induced sleep disorder Current Visit: Yes Status: Acute (3) Opioid dependence with withdrawal Current Visit: Yes Status: Acute (4) Sedative, hypnotic or anxiolytic dependence with withdrawal, uncomplicated Current Visit: Yes Status: Acute (5) Cannabis dependence, uncomplicated Current Visit: Yes Status: Acute (6) Nicotine dependence Current Visit: Yes Status: Chronic Qualifiers: Nicotine product type: cigarettes Substance use status: in withdrawal Qualified Code(s): F17.213 - Nicotine dependence, cigarettes, with withdrawal - Initial Treatment Plan Initial Treatment Plan: 1) Start Melatonin 5 mg po HS prn for insomnia. 2) Continue inpatient detoxification
--- NOTE | 2018-08-05 12:27 | PN ---
[facility] CIWA - CIWA Score Nausea/Vomitin-No Nausea/No Vomiting Muscle Tremors: 3 Anxiety: 3 Agitation: 2 Paroxysmal Sweats: 2 Orientation: 0-Oriented Tacttile Disturbances: 0-None Auditory Disturbances: 0-None Visual Disturbances: 0-None Headache: 0-None Present CIWA-Ar Total Score: 10 BHS COWS - Scale Resting Pulse: 1= [place] 81-100 Sweatin=Flushed/Facial Moisture Restless Observation: 1= Difficult to Sit Still Pupil Size: 0= Normal to Room Light Bone or Joint Aches: 2= Severe Diffuse Aches Runny Nose/ Eye Tearin= Nasal Congestion GI Upset > 30mins: 0= None Tremor Observation of Outstretched Hands: 1= Tremor [place], Not Seen Yawning Observation: 1= 1-2x During Session Anxiety or Irritability: 2=Irritable/Anxious Goose Flesh Skin: 0=Smooth Skin COWS Score: 11 [facility] Progress Note (SOAP) Subjective: sweats anxiety body aches irritable Objective: 08/05/18 12:23 Vital Signs Temperature 97.9 F 08/05/18 10:51 Pulse Rate 83 08/05/18 10:51 Respiratory Rate 16 08/05/18 10:51 Blood Pressure 95/58 L 08/05/18 10:51 O2 Sat by Pulse Oximetry (%) Laboratory Tests 08/04/18 08/04/18 08/04/18 07:00 07:00 07:00 WBC 8.3 RBC 4.69 Hgb 13.8 Hct 41.0 MCV 87.5 MCH 29.4 MCHC 33.6 RDW 13.8 Plt Count 233 D MPV 8.9 Sodium 137 Potassium 4.1 Chloride 104 Carbon Dioxide 28 Anion Gap 4 L BUN 17 Creatinine 0.8 Creat Clearance w eGFR 85.41 Random Glucose 99 Calcium 9.1 Total Bilirubin 0.7 AST 64 H ALT 95 H Alkaline Phosphatase 76 Total Protein 7.0 Albumin 3.8 Urine Color Urine Appearance Urine pH Ur Specific [place] Urine Protein Urine Glucose (UA) Urine Ketones Urine Blood Urine Nitrite Urine Bilirubin Urine Urobilinogen Ur Leukocyte Esterase Urine WBC (Auto) U Epithel Cells (Auto) Urine Bacteria (Auto) RPR Titer Nonreactive 08/04/18 17:31 WBC RBC Hgb Hct MCV MCH MCHC RDW Plt Count MPV Sodium Potassium Chloride Carbon Dioxide Anion Gap BUN Creatinine Creat Clearance w eGFR Random Glucose Calcium Total Bilirubin AST ALT Alkaline Phosphatase Total Protein Albumin Urine Color Yellow Urine Appearance Clear Urine pH 6.0 Ur Specific [place] 1.010 Urine Protein Negative Urine Glucose (UA) Negative Urine Ketones Negative Urine Blood Negative Urine Nitrite Negative Urine Bilirubin Negative Urine Urobilinogen 0.2 Ur Leukocyte Esterase Trace Urine WBC (Auto) 5-10 U Epithel Cells (Auto) Many Urine Bacteria (Auto) Rare RPR Titer aaox3 ambulating no acute distress Assessment: 08/05/18 12:27 withdrawal sx Plan: continue detox increase fluids
[2018-08-05] MEDS: ONDANSETRON *ODT* 4 MG TABLET SL PRN (15:15)
[2018-08-05] MEDS: diazePAM 5 MG TABLET PO PRN (20:32)
[2018-08-05] MEDS: MELATONIN 5 MG TABLETS PO PRN (22:26)
[2018-08-05] MEDS: THIAMINE HCL 100 MG TABLET (FP) PO SCH (22:26)
[2018-08-06] MEDS: BACLOFEN 10 MG TABLET (FP) PO SCH ×3 (05:27→22:31)
[2018-08-06] MEDS ORDERED: diazePAM 5 MG TABLET PO ONE (06:00)
--- NOTE | 2018-08-06 09:57 | PN ---
[facility] Progress Note Note: Vital Signs Temperature 97.5 F L 08/06/18 06:00 Pulse Rate 76 08/06/18 06:00 Respiratory Rate 18 08/06/18 06:00 Blood Pressure 96/60 08/06/18 06:00 O2 Sat by Pulse Oximetry (%) Laboratory Last Values WBC 8.3 K/mm3 (4.0-10.0) 08/04/18 07:00 RBC 4.69 M/mm3 (3.60-5.2) 08/04/18 07:00 Hgb 13.8 GM/dL (10.7-15.3) 08/04/18 07:00 Hct 41.0 % (32.4-45.2) 08/04/18 07:00 MCV 87.5 fl (80-96) 08/04/18 07:00 MCH 29.4 pg (25.7-33.7) 08/04/18 07:00 MCHC 33.6 g/dl (32.0-36.0) 08/04/18 07:00 RDW 13.8 % (11.6-15.6) 08/04/18 07:00 Plt Count 233 K/MM3 (134-434) D 08/04/18 07:00 MPV 8.9 fl (7.5-11.1) 08/04/18 07:00 Sodium 137 mmol/L (136-145) 08/04/18 07:00 Potassium 4.1 mmol/L (3.5-5.1) 08/04/18 07:00 Chloride 104 mmol/L (98-107) 08/04/18 07:00 Carbon Dioxide 28 mmol/L (21-32) 08/04/18 07:00 Anion Gap 4 MMOL/L (8-16) L 08/04/18 07:00 BUN 17 mg/dL (7-18) 08/04/18 07:00 Creatinine 0.8 mg/dL (0.55-1.3) 08/04/18 07:00 Creat Clearance w eGFR 85.41 (>60) 08/04/18 07:00 Random Glucose 99 mg/dL (74-106) 08/04/18 07:00 Calcium 9.1 mg/dL (8.5-10.1) 08/04/18 07:00 Total Bilirubin 0.7 mg/dL (0.2-1) 08/04/18 07:00 AST 64 U/L (15-37) H 08/04/18 07:00 ALT 95 U/L (13-61) H 08/04/18 07:00 Alkaline Phosphatase 76 U/L (45-117) 08/04/18 07:00 Total Protein 7.0 g/dl (6.4-8.2) 08/04/18 07:00 Albumin 3.8 g/dl (3.4-5.0) 08/04/18 07:00 Urine Color Yellow 08/04/18 17:31 Urine Appearance Clear 08/04/18 17:31 Urine pH 6.0 (5.0-8.0) 08/04/18 17:31 Ur Specific [place] 1.010 (1.010-1.035) 08/04/18 17:31 Urine Protein Negative (NEGATIVE) 08/04/18 17:31 Urine Glucose (UA) Negative (NEGATIVE) 08/04/18 17:31 Urine Ketones Negative (NEGATIVE) 08/04/18 17:31 Urine Blood Negative (NEGATIVE) 08/04/18 17:31 Urine Nitrite Negative (NEGATIVE) 08/04/18 17:31 Urine Bilirubin Negative (NEGATIVE) 08/04/18 17:31 Urine Urobilinogen 0.2 mg/dL (0.2-1.0) 08/04/18 17:31 Ur Leukocyte Esterase Trace (NEGATIVE) 08/04/18 17:31 Urine WBC (Auto) 5-10 /hpf (0-5) 08/04/18 17:31 U Epithel Cells (Auto) Many /HPF (0-5/HPF) 08/04/18 17:31 Urine Bacteria (Auto) Rare /hpf (NEGATIVE) 08/04/18 17:31 RPR Titer Nonreactive (NONREACTIVE) 08/04/18 07:00 c/o of nausea, interrupted sleep AOX3 no distress, full ROM, ambulating in the unit withdrawal symptoms d/c in AM Labs reviewed with patient, patient to follow up with PCP within one week of discharge
[2018-08-06] MEDS ORDERED: METHADONE HCL 10 MG TABLET (FOR DETOX USE ONLY) PO ONE (10:00)
[2018-08-06] MEDS: PRENATAL VITAMINS W/ FOLIC ACID TABLET (FP) PO SCH (10:41)
[2018-08-06] MEDS: NAPROXEN 500 MG TABLET (FP) PO SCH ×2 (10:41→22:32)
[2018-08-06] MEDS: NICOTINE 14 MG/24 HOURS TOPICAL PATCH TD SCH (10:41)
[2018-08-06] MEDS: cloNIDine HCL 0.1 MG TABLET PO SCH ×2 (11:59→22:31)
[2018-08-06] MEDS: NICOTINE POLACRILEX 2 MG GUM BUC PRN ×2 (12:01→18:38)
[2018-08-06 21:53] VITALS: TEMP 97.9
[2018-08-06] MEDS: diazePAM 5 MG TABLET PO PRN (22:30)
[2018-08-06] MEDS: THIAMINE HCL 100 MG TABLET (FP) PO SCH (22:31)
[2018-08-07] MEDS: BACLOFEN 10 MG TABLET (FP) PO SCH (05:20)
[2018-08-07] MEDS ORDERED: METHADONE HCL 5 MG TABLET (FOR DETOX USE ONLY) PO ONE (06:00)
[2018-08-07 06:52] VITALS: BP 102/57; PULSE 78
--- NOTE | 2018-08-07 09:28 | DS ---
[facility] Detox Discharge Summary Admission Date: 08/03/18 Discharge Date: 08/07/18 - History Present History: Opioid Dependence, Sedative Dependence Additional Comments: Pt was educated on the importance of a sober support system in recovery. PT was provided with 12-step meetings info near her home. She will be going back to her IOP on Thursday. Pt is medically stable for discharge. Pertinent Past History: seizures xanas/opioid use disorder - Physical Exam Results Vital Signs: Vital Signs Temperature 97.9 F 08/07/18 06:00 Pulse Rate 78 08/07/18 06:00 Respiratory Rate 18 08/07/18 06:00 Blood Pressure 102/57 L 08/07/18 06:00 O2 Sat by Pulse Oximetry (%) Laboratory Last Values WBC 8.3 K/mm3 (4.0-10.0) 08/04/18 07:00 RBC 4.69 M/mm3 (3.60-5.2) 08/04/18 07:00 Hgb 13.8 GM/dL (10.7-15.3) 08/04/18 07:00 Hct 41.0 % (32.4-45.2) 08/04/18 07:00 MCV 87.5 fl (80-96) 08/04/18 07:00 MCH 29.4 pg (25.7-33.7) 08/04/18 07:00 MCHC 33.6 g/dl (32.0-36.0) 08/04/18 07:00 RDW 13.8 % (11.6-15.6) 08/04/18 07:00 Plt Count 233 K/MM3 (134-434) D 08/04/18 07:00 MPV 8.9 fl (7.5-11.1) 08/04/18 07:00 Sodium 137 mmol/L (136-145) 08/04/18 07:00 Potassium 4.1 mmol/L (3.5-5.1) 08/04/18 07:00 Chloride 104 mmol/L (98-107) 08/04/18 07:00 Carbon Dioxide 28 mmol/L (21-32) 08/04/18 07:00 Anion Gap 4 MMOL/L (8-16) L 08/04/18 07:00 BUN 17 mg/dL (7-18) 08/04/18 07:00 Creatinine 0.8 mg/dL (0.55-1.3) 08/04/18 07:00 Creat Clearance w eGFR 85.41 (>60) 08/04/18 07:00 Random Glucose 99 mg/dL (74-106) 08/04/18 07:00 Calcium 9.1 mg/dL (8.5-10.1) 08/04/18 07:00 Total Bilirubin 0.7 mg/dL (0.2-1) 08/04/18 07:00 AST 64 U/L (15-37) H 08/04/18 07:00 ALT 95 U/L (13-61) H 08/04/18 07:00 Alkaline Phosphatase 76 U/L (45-117) 08/04/18 07:00 Total Protein 7.0 g/dl (6.4-8.2) 08/04/18 07:00 Albumin 3.8 g/dl (3.4-5.0) 08/04/18 07:00 Urine Color Yellow 08/04/18 17:31 Urine Appearance Clear 08/04/18 17:31 Urine pH 6.0 (5.0-8.0) 08/04/18 17:31 Ur Specific [place] 1.010 (1.010-1.035) 08/04/18 17:31 Urine Protein Negative (NEGATIVE) 08/04/18 17:31 Urine Glucose (UA) Negative (NEGATIVE) 08/04/18 17:31 Urine Ketones Negative (NEGATIVE) 08/04/18 17:31 Urine Blood Negative (NEGATIVE) 08/04/18 17: Urine Nitrite Negative (NEGATIVE) 08/04/18 17: Urine Bilirubin Negative (NEGATIVE) 08/04/18 17: Urine Urobilinogen 0.2 mg/dL (0.2-1.0) 08/04/18 17:31 Ur Leukocyte Esterase Trace (NEGATIVE) 08/04/18 17:31 Urine WBC (Auto) 5-10 /hpf (0-5) 08/04/18 17:31 U Epithel Cells (Auto) Many /HPF (0-5/HPF) 08/04/18 17:31 Urine Bacteria (Auto) Rare /hpf (NEGATIVE) 08/04/18 17:31 RPR Titer Nonreactive (NONREACTIVE) 08/04/18 07:00 Labs reviewed. Pertinent Admission Physical Exam Findings: withdrawal symptoms - Treatment Hospital Course: Detox Protocol Followed, Detoxed Safely, Responded well, Discharged Condition Good - Medication Discharge Medications: Ambulatory Orders Quetiapine Fumarate [Seroquel] 300 mg PO HS 08/03/18 - Diagnosis (1) Opioid dependence with withdrawal Status: Acute (2) Sedative, hypnotic or anxiolytic dependence with withdrawal, uncomplicated Status: Acute (3) Alcohol dependence with uncomplicated withdrawal Status: Chronic (4) Drug-induced mood disorder Status: Chronic - AMA Did Patient Leave Against Medical Advice: No
== END 2018-08-07 09:19 | disposition home or self-care (01) | DRG 773 ==
LOC: YASAS 18:49 → Y6N 23:57
PROVIDERS: ADMIT Surgery; ATTEND Surgery
PROC: HZ2ZZZZ Detoxification Services for Substance Abuse Treatment (ICD-10-PCS; principal; 2018-08-03)
DX: F11.23 Opioid dependence with withdrawal (principal); F10.230 Alcohol dependence with withdrawal, uncomplicated; F13.230 Sedative, hypnotic or anxiolytic dependence with withdrawal, uncomplicated; F12.20 Cannabis dependence, uncomplicated; F17.213 Nicotine dependence, cigarettes, with withdrawal; F19.24 Other psychoactive substance dependence with psychoactive substance-induced mood disorder; F19.282 Other psychoactive substance dependence with psychoactive substance-induced sleep disorder
CPT/HCPCS: 36415; 80053; 81003; 85027; 86593; 93005; 93010; J0475; J0735; Q0162